=== PATIENT | female | born 1995 | race Caucasian/White ===

== ENCOUNTER → 2020-12-21 | Emergency (ER) | payer OTHER ==
[~2020-12-21] VITALS: Ht 162.6 cm; Wt 70.5 kg
[~2020-12-21] MED LIST: VENL37.55 PO; venlafaxine XR 37.5mg cap (Q24H) PO SCH
[2020-12-21 01:03] LABS: URINE HCG NEGATIVE (NEG)
[2020-12-21 01:10] LABS: BASOPHILS % (AUTO) 0.6 % (0-1); EOSINOPHILS % (AUTO) 0.7 % (0-6); HEMATOCRIT 40.7 % (35.0-45.0); LYMPHOCYTES # (AUTO) 2.3 X10'3 (1.1-4.8); LYMPHOCYTES % (AUTO) 34.8 % (21-51); MEAN CORPUSCULAR HEMOGLOBIN 30.1 PG (27.0-31.0); MEAN CORPUSCULAR HGB CONC 34.4 g/dL (33.0-36.5); MEAN CORPUSCULAR VOLUME 87.7 FL (78-98); MEAN PLATELET VOLUME 7.5 FL (7.4-10.4); MONOCYTES # (AUTO) 0.4 X10'3 (0-0.9); MONOCYTES % (AUTO) 6.6 % (2-12); NEUTROPHILS # (AUTO) 3.7 X10'3 (1.8-7.7); NEUTROPHILS % (AUTO) 57.3 % (42-75); PLATELET COUNT 304 X10'3 (140-440); RED BLOOD COUNT 4.65 X10'6 (4.20-5.60); RED CELL DISTRIBUTION WIDTH 12.4 % (11.5-14.5); WHITE BLOOD COUNT 6.5 X10'3 (4.5-11.0)
[2020-12-21 01:16] LABS: URINE AMPHETAMINE SCREEN NEGATIVE (Neg); URINE BARBITUATE SCREEN NEGATIVE (Neg); URINE BENZODIAZEPINES SCREEN NEGATIVE (Neg); URINE CANNABINOID SCREEN POSITIVE (Neg); URINE COCAINE SCREEN NEGATIVE (Neg); URINE METHADONE SCREEN NEGATIVE (Neg); URINE OPIATE SCREEN NEGATIVE (Neg); URINE PHENCYCLIDINE SCREEN NEGATIVE (Neg)
[2020-12-21 01:22] LABS: ALANINE AMINOTRANSFERASE 39 U/L (12-78); ALBUMIN 4.3 G/DL (3.4-5.0); ALBUMIN/GLOBULIN RATIO 1.2 (1.1-1.5); ALKALINE PHOSPHATASE 35 IU/L (46-116); ANION GAP 15 (8-16); ASPARTATE AMINO TRANSFERASE 30 U/L (10-37); BILIRUBIN,TOTAL 0.3 MG/DL (0.1-1.0); BLOOD UREA NITROGEN 9 MG/DL (7-18); BUN/CREATININE RATIO 13.4 (6.6-38.0); CHLORIDE 107 MMOL/L (99-107); CREATININE 0.67 MG/DL (0.40-0.90); ETHANOL 0.145 GM/DL (0.0-0.010); GLUCOSE 113 MG/DL (70-104); POTASSIUM 3.5 MMOL/L (3.5-5.1); SODIUM 145 MMOL/L (135-145); TOTAL CARBON DIOXIDE 23.2 MMOL/L (24-32); TOTAL PROTEIN 7.9 G/DL (6.4-8.2); eGFR > 90 ML/MIN
[2020-12-21 01:24] LABS: ACETAMINOPHEN < 2.0 UG/ML (10-30)
--- NOTE | 2020-12-21 02:11 | NUR ---
faxed records [facility]
--- NOTE | 2020-12-21 02:39 | NUR ---
Patient sleeps quietly, no distress. In view from the nurses station.
--- NOTE | 2020-12-21 05:12 | NUR ---
Patient sleeps quietly on her left side.
[2020-12-21 06:04] VITALS: BP 118/75
--- NOTE | 2020-12-21 06:25 | NUR ---
Assumed care of patient. Pt appears to be sleeping, no distress noted. Pt sleeping on right side.
[2020-12-21 07:27] LABS: CLARITY,URINE CLEAR (Clear); COLOR,URINE YELLOW (Yellow); GLUCOSE, URINE NEGATIVE (Neg); KETONES,URINE NEGATIVE (Neg); LEUKOCYTE ESTERASE ,URINE NEGATIVE (Neg); NITRITES, URINE NEGATIVE (Neg); OCCULT BLOOD,URINE NEGATIVE (Neg); PROTEIN,URINE NEGATIVE (Neg); UROBILINOGEN,URINE 0.2 E.U/dL (0.2-1.0)
[2020-12-21 07:31] LABS: UA COLLECTION TYPE CLN CATCH MIDSTREAM
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
--- NOTE | 2020-12-21 10:30 | NUR ---
Patient sitting on bed talking with [facility]. No distress noted. Pt and [facility] working on a safe discharge plan.
== END | disposition home or self-care (01) ==
LOC: ER 00:09
DX: S11.81XA Laceration without foreign body of other specified part of neck, initial encounter (principal); Z20.822 Contact with and (suspected) exposure to COVID-19; S41.112A Laceration without foreign body of left upper arm, initial encounter; S41.111A Laceration without foreign body of right upper arm, initial encounter; S81.812A Laceration without foreign body, left lower leg, initial encounter; S81.811A Laceration without foreign body, right lower leg, initial encounter; F32.9 Major depressive disorder, single episode, unspecified; Z79.899 Other long term (current) drug therapy; X83.8XXA Intentional self-harm by other specified means, initial encounter; Y93.89 Activity, other specified; Y92.89 Other specified places as the place of occurrence of the external cause; Y99.8 Other external cause status
CPT/HCPCS: 36415; 80053; 80305; 80320; 80329; 81003; 81025; 85025; 87426; 87491; 99285

== ENCOUNTER 2021-06-18 09:11 | Emergency (ER) | payer OTHER ==
[~2021-06-18] VITALS: Ht 162.6 cm; Wt 72.7 kg
[~2021-06-18 09:11] MED LIST changes: -venlafaxine XR 37.5mg cap (Q24H) PO SCH
[2021-06-18 11:09] LABS: BASOPHILS % (AUTO) 0.5 % (0-1); EOSINOPHILS # (AUTO) 0.1 X10'3 (0-0.9); EOSINOPHILS % (AUTO) 1.3 % (0-6); HEMATOCRIT 36.2 % (35.0-45.0); HEMOGLOBIN 12.7 g/dl (12.0-16.0); LYMPHOCYTES # (AUTO) 1.6 X10'3 (1.1-4.8); LYMPHOCYTES % (AUTO) 31.8 % (21-51); MEAN CORPUSCULAR HEMOGLOBIN 30.6 PG (27.0-31.0); MEAN CORPUSCULAR VOLUME 87.6 FL (78-98); MEAN PLATELET VOLUME 7.5 FL (7.4-10.4); MONOCYTES # (AUTO) 0.4 X10'3 (0-0.9); MONOCYTES % (AUTO) 7.7 % (2-12); NEUTROPHILS # (AUTO) 2.9 X10'3 (1.8-7.7); NEUTROPHILS % (AUTO) 58.7 % (42-75); PLATELET COUNT 297 X10'3 (140-440); RED BLOOD COUNT 4.13 X10'6 (4.20-5.60); RED CELL DISTRIBUTION WIDTH 11.8 % (11.5-14.5)
[2021-06-18 11:21] LABS: ALBUMIN 4.1 G/DL (3.4-5.0); BLOOD UREA NITROGEN 11 MG/DL (7-18); BUN/CREATININE RATIO 16.7 (6.6-38.0); CALCIUM 8.7 MG/DL (8.5-10.1); CREATININE 0.66 MG/DL (0.40-0.90); GLUCOSE 92 MG/DL (70-104); POTASSIUM 3.8 MMOL/L (3.5-5.1); SODIUM 141 MMOL/L (135-145); TOTAL CARBON DIOXIDE 26.7 MMOL/L (24-32); eGFR > 90 ML/MIN
[2021-06-18 11:22] LABS: ANION GAP 8 (8-16); CHLORIDE 106 MMOL/L (99-107)
[2021-06-18 12:59] LABS: HCG SERUM QL NEGATIVE
--- NOTE | 2021-06-18 13:28 | NUR ---
AWAITING FOR ULTRASOUD TECH.
[2021-06-18] MEDS ORDERED: tranexamic acid 1gm/0.7% sal. 100 ML IV ONE (14:10)
[2021-06-18] MEDS ORDERED: MEDR10TA10 PO (14:19)
[2021-06-18] MEDS ORDERED: medroxyPROGESTERone acetate 150mg/ml inj IM ONE (14:20)
--- NOTE | 2021-06-18 14:42 | NUR ---
process control tech at bedside.
--- NOTE | 2021-06-18 15:12 | NUR ---
Depo not available,Dr. Servin aware.
--- NOTE | 2021-06-18 15:36 | NUR ---
depo not needed per Dr. donnelly.
[2021-06-18 16:04] VITALS: BP 125/78
== END 2021-06-18 16:06 | disposition home or self-care (01) ==
LOC: ER 09:13
DX: N93.9 Abnormal uterine and vaginal bleeding, unspecified (principal); F32.9 Major depressive disorder, single episode, unspecified
CPT/HCPCS: 36415; 76856; 80048; 84703; 85025; 93976; 96365; 99285

== ENCOUNTER 2021-12-29 09:57 | Emergency (ER) | payer OTHER ==
[~2021-12-29] VITALS: Ht 162.6 cm; Wt 68.0 kg
[~2021-12-29 09:57] MED LIST changes: +MEDR10TA10 PO
[2021-12-29 10:11] VITALS: BP 133/59
[2021-12-29 13:51] LABS: RHEUM FACTOR QUAL REFLEX TITER NEGATIVE (Neg)
[2021-12-29] MEDS ORDERED: RHO(D) IMMUNE GLOBULIN 250 UNIT (50 MCG) DISP.SYRIN IM ONE (16:00)
--- NOTE | 2021-12-29 16:27 | NUR ---
Daniel adhikari called and left message for pt about returning to the ed for injection.
== END 2021-12-29 15:38 | disposition home or self-care (01) ==
LOC: ER 09:58
DX: O20.0 Threatened abortion (principal); R10.32 Left lower quadrant pain; N93.9 Abnormal uterine and vaginal bleeding, unspecified; F32.A Depression, unspecified; Z3A.01 Less than 8 weeks gestation of pregnancy; Z79.899 Other long term (current) drug therapy
CPT/HCPCS: 36415; 76817; 84702; 86430; 86885; 86900; 86901; 99284